=== PATIENT | male | born 1935 | race Caucasian/White ===

== ENCOUNTER 2017-01-10 02:20 | Inpatient (IN) ==
--- NOTE | 2017-01-05 13:15 | EKG Report ---
Test Performed on : 01/05/2017 12:10:27 PM Test Reason : PAT Blood Pressure : / mmHG Vent. Rate : 075 BPM Atrial Rate : 075 BPM P-R Int : 186 ms QRS Dur : 094 ms QT Int : 374 ms P-R-T Axes : 051 -44 032 degrees QTc Int : 417 ms Normal sinus rhythm. with sinus arrhythmia. Left axis deviation Abnormal ECG No previous ECGs available Confirmed by Kayla ZULETA, Dmitry Hernandez ([id number]) on 01/07/2017 9:51:26 AM
[2017-01-05 13:20] LABS: BASO% 0.4 % (0.0-0.8); EOS% 2.8 % (0.0-10.0); HEMATOCRIT 49.7 % (42.0-52.0); HEMOGLOBIN 17.3 g/dL (14.0-18.0); LYMPH# 2.57 X1000 (1.2-3.4); LYMPH% 36.3 % (20.5-51.1); MANUAL DIFF NEEDED? NO; MCH 32.6 PG (27-31); MCHC 34.8 g/dL (33-37); MCV 93.8 FL (81-99); MONO# 1.25 X1000 (0.11-0.59); MONO% 17.7 % (1.7-9.3); MPV 11.8 FL (7.4-10.4); NEUT% 42.8 % (42.2-75.2); PLT 110 X1000 (130-400)
[2017-01-05 13:23] LABS: URINE MICRO REVIEW NEEDED? NO; URINE SOURCE CLEAN CATCH
[2017-01-05 13:29] LABS: INR 1.04
[2017-01-05 13:51] LABS: AGAP 14; BUN 16 mg/dL (8-22); CALCIUM 10.1 mg/dL (8.8-10.2); CHLORIDE 98 mmol/L (98-107); COSMO 278; POTASSIUM 4.9 mmol/L (3.5-5.1); SODIUM 139 mmol/L (136-145); TCO2 27 mmol/L (25-35)
[2017-01-05 14:08] LABS: BILIRUBIN URINE NEGATIVE (NEGATIVE); BLOOD URINE NEGATIVE (NEGATIVE); COLOR YELLOW; GLUCOSE URINE NEGATIVE (NEGATIVE); LEUKOCYTES URINE NEGATIVE (NEGATIVE); NITRITE URINE NEGATIVE (NEGATIVE); PH URINE 5.5; PROTEIN URINE NEGATIVE (NEGATIVE); SP GRAVITY URINE 1.018; TURBIDITY URINE CLEAR (CLEAR); UROBILINOGEN URINE NORMAL (NORMAL)
[2017-01-05 14:10] LABS: UR EPITHELIAL CELLS <10 /HPF (<10); URINE BACTERIA NEGATIVE /HPF; URINE RBC <10 /HPF (<10); URINE WBC <10 /HPF (<10)
[2017-01-10] MEDS ORDERED: MORPHINE IV PRN (07:22)
[2017-01-10] MEDS ORDERED: COLACE ONE (07:25)
[2017-01-10] MEDS ORDERED: PEPCID ONE (07:25)
[2017-01-10] MEDS ORDERED: REGLAN ONE (07:25)
[2017-01-10] MEDS ORDERED: LYRICA ONE (07:25)
[2017-01-10] MEDS ORDERED: KEFZOL 2 GM/D5W 2 GM/50 ML IVPB ONE (07:26)
[2017-01-10] MEDS ORDERED: CELEBREX ONE (07:26)
[2017-01-10] MEDS ORDERED: LR 1,000 ML ONE (07:26)
[2017-01-10] MEDS ORDERED: TORADOL ONE (08:04)
[2017-01-10] MEDS ORDERED: NEOSPORIN G.U. IRRIGANT ONE (08:05)
[2017-01-10] MEDS ORDERED: CLAVE SECONDARY SET 11953 ONE (08:05)
[2017-01-10] MEDS ORDERED: CYKLOKAPRON 1,000 MG/NS 1,000 MG/100 ML IVPB ONE ×2 (08:05)
[2017-01-10] MEDS ORDERED: EXPAREL 1.3% ONE (08:05)
[2017-01-10] MEDS ORDERED: SODIUM CHLORIDE 0.9% ONE (08:05)
[2017-01-10] MEDS ORDERED: VANCOMYCIN ONE (08:05)
[2017-01-10] MEDS ORDERED: DURAMORPH ONE (08:05)
[2017-01-10] MEDS ORDERED: MARCAINE 0.25% PF/EPI 1:200,000 ONE (08:05)
--- NOTE | 2017-01-10 09:12 | HISTORY AND PHYSICAL ---
CHIEF COMPLAINT: Right knee pain. HISTORY OF PRESENT ILLNESS: Mr. Ott is a 81-year-old, white male who has experienced progressive right knee pain for some time. His pain is worse with weightbearing and other activities. Radiographic evaluation of the knee reveals findings consistent with advanced degenerative joint disease. Despite conservative therapy, he still has a significant reduction in his ability to perform his normal daily activities, and he will be admitted at this time for a right total knee arthroplasty. PRIMARY CARE PROVIDER: Dr. Jesus Uribe. ALLERGIES: No known drug allergies. PAST MEDICAL HISTORY: 1. Osteoarthritis. 2. Hypertension. PAST SURGICAL HISTORY: Left carpal tunnel release. SOCIAL HISTORY: The patient is a nonsmoker. He maintains a home with his . CURRENT MEDICATIONS: Prinivil 10 mg daily. REVIEW OF SYSTEMS: HEENT: No known history of stroke or cerebrovascular disease. Denies syncopal events or recent interval health changes. Cardiac: He has a history of hypertension. No history of coronary artery disease, chest pain, or other anginal equivalents. Pulmonary: The patient is a nonsmoker, with no chronic lung disease. Gastrointestinal: Denies weight loss, recent nausea, vomiting, diarrhea, or constipation. Genitourinary: No recent kidney or bladder infection or dysfunction. Neurological: Denies extremity radicular pain, weakness, or paresthesia. Musculoskeletal: Osteoarthritis of the right knee. PHYSICAL EXAMINATION: GENERAL: The patient is resting comfortably in bed. He is articulate and able to answer all questions fully. HEENT: Head is normocephalic and atraumatic. Pupils are equal, round, react to light. Nares are patent. Throat without exudate. NECK: Supple. HEART: Regular rate and rhythm. No murmurs, gallops, or rubs. LUNGS: Clear to auscultation bilaterally. GASTROINTESTINAL: His abdomen is round. Bowel sounds are present. It is nontender. GENITOURINARY: Not examined. NEUROLOGICAL: He discerns soft touch in the affected extremity. Gross motor function is intact. MUSCULOSKELETAL: Right knee, no deformities, edema, or ecchymosis is noted. He has a good peripheral pulse. IMPRESSION: Degenerative joint disease of the right knee. PLAN: Right total knee arthroplasty. The risks and benefits of surgery were explained to the patient including the risks of anesthesia, , bleeding, infection, damage to tendons, ligaments, nerves, and blood vessels. The possibility of bleeding, blood clots, and other imponderables were discussed, and the patient wishes to proceed with operative management at this time. Dictated by NICHELLE Asencio for Carlos Cifuentes MD cc: NICHELLE Asencio MD
[2017-01-10 09:57] LABS: URINE MICRO REVIEW NEEDED? NO; URINE SOURCE CATH
[2017-01-10 10:02] LABS: BILIRUBIN URINE NEGATIVE (NEGATIVE); BLOOD URINE NEGATIVE (NEGATIVE); COLOR YELLOW; GLUCOSE URINE NEGATIVE (NEGATIVE); LEUKOCYTES URINE NEGATIVE (NEGATIVE); NITRITE URINE NEGATIVE (NEGATIVE); PROTEIN URINE NEGATIVE (NEGATIVE); SP GRAVITY URINE 1.015; TURBIDITY URINE CLEAR (CLEAR); UROBILINOGEN URINE NORMAL (NORMAL)
[2017-01-10 10:06] LABS: UR EPITHELIAL CELLS <10 /HPF (<10); URINE BACTERIA NEGATIVE /HPF; URINE RBC <10 /HPF (<10); URINE WBC <10 /HPF (<10)
[2017-01-10] MEDS ORDERED: DIPRIVAN 1% ONE (11:05)
[2017-01-10] MEDS ORDERED: MORPHINE ONE (11:06)
[2017-01-10] MEDS ORDERED: VERSED ONE (11:06)
[2017-01-10] MEDS ORDERED: FENTANYL ONE (11:06)
[2017-01-10] MEDS ORDERED: NS 1,000 ML ONE (11:10)
[2017-01-10] MEDS ORDERED: DECADRON ONE (11:12)
[2017-01-10] MEDS ORDERED: XYLOCAINE-MPF 2% ONE (11:12)
[2017-01-10] MEDS ORDERED: OFIRMEV 1000 MG/ISOTONIC SOLN 1,000 MG/100 ML BOTTLE ONE (11:12)
[2017-01-10] MEDS ORDERED: LR 2,000 ML ONE (11:12)
[2017-01-10] MEDS ORDERED: ZOFRAN ONE (11:12)
[2017-01-10] MEDS ORDERED: LR 500 ML ONE (11:36)
--- NOTE | 2017-01-10 11:58 | OPERATIVE NOTE ---
PROCEDURE DATE: 01/10/2017 PREOPERATIVE DIAGNOSIS: Degenerative joint disease, right knee. POSTOPERATIVE DIAGNOSIS: Degenerative joint disease, right knee. PROCEDURE: Right total knee replacement. SURGEON: Jhoan Cifuentes MD. SERVICE CONSULTANT: Chadwick Interiano. ANESTHESIA: Spinal. COMPLICATION: None. PROCEDURE IN DETAIL: A 81-year-old male presents for right knee replacement. Risks, benefits, and no guarantees were discussed, and he is willing to proceed. He was taken to the operating room and satisfactory anesthesia obtained. The right leg was prepped and draped in usual sterile fashion. A time-out was taken to confirm operative site, procedure, and patient. The leg was wrapped with an Esmarch. Tourniquet inflated to 350 mmHg. A midline incision was made over the front of the knee followed by a quad tendon sparing arthrotomy. The patella was resurfaced with freehand technique and subluxed laterally. An intramedullary hole made in the distal femur with the knee flexed. Distal femoral cutting block was secured in 5 degrees of valgus. Femoral resection was made with an additional 2 mm off the distal femur to accommodate a 10 degree flexion contracture. The distal femur was then measured to a size 7 DePuy Attune implant. The 4 in 1 block was secured and the anterior, posterior, and chamfer cuts sequentially made. Good integrity of the PCL was noted and this was retained. Osteophytes were debrided about the femur. The knee was flexed and a PCL retractor placed behind the tibia to protect the PCL neurovascular bundle. The tibial cutting block was secured using extramedullary alignment and tibial resection made. Good flexion and extension gaps were noted as well as correction of the leg alignment. The tibia was sized to a size 7 tibial tray. A trial reduction was performed with trial implants, and a 7 mm thick trial poly with good range of motion and stability. The patella was sized to a 38 medialized dome patella. The drill paddle used to prepare for the patella and the femoral lug holes. Trial components were removed and the bony surfaces thoroughly irrigated with pulsatile lavage. Cement with a gram of vancomycin was utilized to cement a DePuy Attune size 7 rotating platform tibial base plate, size 7 right cruciate-retaining femoral component, and a 38 medialized dome patella. While the cement cured the joint capsule was injected with Exparel for pain management and a Hemovac drain placed. After the cement had cured the excess cement was removed and the 7 mm size 7 rotating platform tibial poly inserted into the tibial tray and the knee reduced. The final range of motion was 0-120 degrees with midline patellar tracking and good soft tissue balance. The arthrotomy was then copiously irrigated and closed over the drain with #1 Vicryl in the arthrotomy, 2-0 Vicryl in the subcutaneous, and skin layton on the skin edges. Sterile dressings completed the closure. The patient was recovered from anesthesia and transferred to the recovery room in stable condition. No intraoperative complications were noted. Instrument count and sponge count was correct at time of closure. cc: Carlos Cifuentes MD
[2017-01-10] MEDS: NS 1,000 ML IV SCH (14:00)
[2017-01-10] MEDS: COLACE PO SCH ×2 (15:00→20:24)
[2017-01-10] MEDS: PRINIVIL PO SCH (15:00)
[2017-01-10] MEDS: CELEBREX PO SCH (15:01)
--- NOTE | 2017-01-10 15:09 | Diag Imaging Result Document ---
PROCEDURE NAME: KNEE 1-2 VIEWS-RIGHT - 01/10/2017 RIGHT KNEE TWO VIEWS: FINDINGS: There has been recent orthopedic replacement of the right knee. There is good alignment to the femoral and tibial components. There are anterior skin layton and there is a superior surgical drain. No fracture or dislocation. IMPRESSION: Good alignment following orthopedic replacement of the right knee.
[2017-01-10] MEDS: KEFZOL 1 GM/D5W 1 GM/50 ML IVPB IV SCH (17:11)
[2017-01-10] MEDS: NORCO-10 PO PRN ×2 (17:12→21:42)
[2017-01-10] MEDS: PERIDEX MT SCH (20:23)
[2017-01-11] MEDS: NS 1,000 ML IV SCH (01:00)
[2017-01-11] MEDS: KEFZOL 1 GM/D5W 1 GM/50 ML IVPB IV SCH (01:15)
[2017-01-11] MEDS: NORCO-10 PO PRN ×3 (05:30→13:44)
[2017-01-11] MEDS ORDERED: XARELTO PO SCH (06:00)
[2017-01-11 06:29] LABS: HEMATOCRIT 43.6 % (42.0-52.0); HEMOGLOBIN 14.8 g/dL (14.0-18.0)
[2017-01-11 06:51] LABS: AGAP 15; BUN 16 mg/dL (8-22); CALCIUM 8.8 mg/dL (8.8-10.2); CHLORIDE 101 mmol/L (98-107); COSMO 278; SODIUM 138 mmol/L (136-145); TCO2 22 mmol/L (25-35)
[2017-01-11 09:03] VITALS: BP 140/59
[2017-01-11] MEDS: PERIDEX MT SCH (09:35)
[2017-01-11] MEDS: CELEBREX PO SCH (09:36)
[2017-01-11] MEDS: COLACE PO SCH (09:36)
[2017-01-11] MEDS: PRINIVIL PO SCH (09:36)
--- NOTE | 2017-01-11 16:35 | DISCHARGE SUMMARY ---
ADMISSION DATE: 01/10/2017 DISCHARGE DATE: 01/11/2017 ADMITTING DIAGNOSIS: Degenerative joint disease, right knee ADDITIONAL DIAGNOSIS: Hypertension. DISCHARGE DIAGNOSES: 1. Degenerative joint disease of right knee. 2. Hypertension. ADMITTING HISTORY AND HOSPITAL COURSE: Mr. Ott is a 81-year-old white male with a history of right knee pain for some time now. He was admitted to the hospital yesterday and we performed a right total knee arthroplasty. He remained afebrile. Vital signs remained stable after the procedure. Currently his hematocrit 43.6. He ambulated about 175 feet with a front wheel walker with therapy today. We plan to send him home today with [facility] [employer] [facility]. [place] coming out to work with him at home. DISCHARGE MEDICATIONS: 1. Lisinopril 10 mg p.o. daily. 2. [place] 10, 1-2 p.o. q.4-6 hours p.r.n. for pain. 3. Xarelto mg p.o. daily for 14 days. DISCHARGE INSTRUCTIONS: 1. Mr. Ott is to be discharged home today where he will begin a home physical therapy regimen. I discussed with him that he will be going home with a pain medication and anticoagulant. I also discussed the interactions and possible side effects of the medications with him and he understands. 2. We will plan for him to follow up with Dr. Cifuentes in about 10 days to have his follow-up visit and layton removed. I discussed with him if he has any worsening signs or symptoms in the interim to contact the office immediately. Dictated by ALLEN Morales for Carlos Cifuentes MD cc: ALLEN Morales MD
== END 2017-01-11 15:37 | disposition home health service (06) ==
LOC: SURHOLD 02:20 → 4N 09:34
PROVIDERS: ADMIT Orthopaedic Surgery Adult Reconstructive Orthopaedic Surgery; ATTEND Orthopaedic Surgery Adult Reconstructive Orthopaedic Surgery